=== PATIENT | male | born 1950 | race Hispanic/Latino ===

== ENCOUNTER → 2022-11-20 | Day surgery (SDC) | payer MEDICARE ==
[~2022-11-20] MED LIST: BYSTOLIC10 MG PO; CRESTOR10 MG PO; FARXIGA10 MG PO; FENTANYL CITRATE/PF 100MCG/2 ML INJ ONE; FEROCON CAPSUL1 EACH PO; HYDRALAZINE HC100 MG PO; LACTATED RINGER'S 1,000 ML ONE; LEVOTHYROXINE50 MCG PO; MIDAZOLAM HCL 2 MG/2 ML VIAL ONE; OMEGA 3 1,0001 EACH PO; OR PHACO EYE KIT ONE; POTASSIUM CHLO20 ME1 PO; PREOP PHACO EYE KIT ONE; PROTONIX20 MG PO; TORSEMIDE20 MG PO; VERQUVO5 MG PO; WARFARIN SODIUM3 MG PO
[2022-11-20 10:03] LABS: INR 1.35; PROTHROMBIN TIME 17.2 seconds (11.9-14.5)
[2022-11-20 10:04] LABS: PARTIAL THROMBOPLASTIN TIME 32.5 seconds (23.8-35.5)
[2022-11-20 12:50] VITALS: BP 100/83
== END | disposition home or self-care (01) ==
LOC: OR 08:50
PROVIDERS: ATTEND Ophthalmology
DX: H25.11 Age-related nuclear cataract, right eye (principal); N18.32 Chronic kidney disease, stage 3b; I48.91 Unspecified atrial fibrillation; Z79.01 Long term (current) use of anticoagulants; Z79.899 Other long term (current) drug therapy; Z95.0 Presence of cardiac pacemaker; Z86.2 Personal history of diseases of the blood and blood-forming organs and certain disorders involving the immune mechanism
CPT/HCPCS: 36415; 66984; 82948; 85610; 85730; J2250; J3010; J7121; V2632